=== PATIENT | male | born 1995 | race Caucasian/White ===

== ENCOUNTER 2022-09-07 13:36 | Emergency (ER) | payer OTHER ==
[~2022-09-07] VITALS: Ht 172.7 cm; Wt 65.8 kg
[2022-09-07] MEDS ORDERED: CIPRO500 MG PO (17:15)
[2022-09-07] MEDS ORDERED: DICLOFENAC SODI75 MG PO (17:15)
== END 2022-09-07 17:31 | disposition home or self-care (01) ==
LOC: ER 13:36
DX: T63.691A Toxic effect of contact with other venomous marine animals, accidental (unintentional), initial encounter (principal)

== ENCOUNTER 2024-08-05 16:41 | Emergency (ER) | payer OTHER ==
[~2024-08-05] VITALS: Ht 172.7 cm; Wt 68.0 kg
[~2024-08-05 16:41] MED LIST: CIPRO500 MG PO; DICLOFENAC SODI75 MG PO
[2024-08-05] MEDS ORDERED: KETOROLAC TROMETHAMINE 30 MG VIAL IM ONE (18:15)
[2024-08-05 18:58] LABS: URINE APPEARANCE Clear; URINE BILIRRUBIN Negative (NEGATIVE); URINE BLOOD Negative; URINE COLOR Yellow; URINE GLUCOSE Negative (NEGATIVE); URINE KETONE Negative (NEGATIVE); URINE LEUKOCYTE Negative; URINE NITRATE Negative; URINE PROTEIN Negative (NEGATIVE); URINE UROBILINOGEN 0.2 E.U./dl
[2024-08-05 19:01] LABS: URINE BACTERIA 15.9 uL (0.0-1933); URINE RBC 2.3 uL (0.0-20.8); URINE WBC 3.6 uL (0.0-23.2)
[2024-08-05 19:03] LABS: HEMATOCRIT 40.9 % (39.0-48.0); HEMOGLOBIN 14.3 g/dL (13-16.00); MEAN CELL VOLUME 92.9 fL (80.0-100.00); MEAN CORPUSCULAR HEMOGLOBIN 32.5 pg (27.00-32.0); PLATELET COUNT 305 K/uL (150-450)
[2024-08-05 19:13] LABS: URINE EPITHELIAL CELLS 0.1 uL (0.0-38.8)
[2024-08-05 19:20] LABS: CALCIUM 9.4 mg/dL (8.5-10.1); CREATININE SERUM 1.27 mg/dL (0.70-1.30); GFR 66.59; POTASSIUM 3.93 mEq/L (3.5-5.1)
== END 2024-08-05 20:33 | disposition home or self-care (01) ==
LOC: ER 16:43
PROVIDERS: General Practice
DX: I86.1 Scrotal varices (principal); N50.3 Cyst of epididymis

== ENCOUNTER 2024-09-26 15:14 | Emergency (ER) | payer OTHER ==
[~2024-09-26] VITALS: Ht 167.6 cm; Wt 63.5 kg
[2024-09-26] MEDS ORDERED: IBU600 MG PO (19:38)
== END 2024-09-26 20:20 | disposition home or self-care (01) ==
LOC: ER 15:17
DX: G89.11 Acute pain due to trauma (principal); S89.92XA Unspecified injury of left lower leg, initial encounter; W18.39XA Other fall on same level, initial encounter; Y93.01 Activity, walking, marching and hiking; Y92.89 Other specified places as the place of occurrence of the external cause

== ENCOUNTER 2024-10-04 11:13 | Outpatient (CLI) | payer OTHER ==
[~2024-10-04 11:13] MED LIST changes: +IBU600 MG PO
== END 2024-10-04 14:14 | disposition home or self-care (01) ==
LOC: MRI 11:13
PROVIDERS: ATTEND Orthopaedic Surgery
DX: M25.562 Pain in left knee (principal)
CPT/HCPCS: 73718

== ENCOUNTER 2025-05-02 16:34 | Emergency (ER) | payer OTHER ==
[~2025-05-02] VITALS: Ht 172.7 cm; Wt 68.0 kg
[2025-05-02 17:32] VITALS: BP 120/72; O2SAT 100
[2025-05-02] MEDS ORDERED: CEFTRIAXONE SODIUM 1,000 MG VIAL IM STA (18:07)
[2025-05-02] MEDS ORDERED: DEXAMETHASONE SODIUM PHOSPHATE 4 MG/ML VIAL IM STA (18:07)
[2025-05-02] MEDS ORDERED: DEXAMETHASONE SODIUM PHOSPHATE 4 MG/ML VIAL ONE (18:28)
== END 2025-05-02 23:58 | disposition home or self-care (01) ==
LOC: ER 16:34
DX: S01.81XA Laceration without foreign body of other part of head, initial encounter (principal); S09.90XA Unspecified injury of head, initial encounter; S89.92XA Unspecified injury of left lower leg, initial encounter; W45.8XXA Other foreign body or object entering through skin, initial encounter; Y93.89 Activity, other specified; Y92.828 Other wilderness area as the place of occurrence of the external cause; Y99.8 Other external cause status

== ENCOUNTER 2025-05-11 16:55 | Emergency (ER) | payer OTHER ==
[~2025-05-11] VITALS: Ht 172.7 cm; Wt 68.0 kg
== END 2025-05-11 17:32 | disposition home or self-care (01) ==
LOC: ER 16:55
DX: Z48.02 Encounter for removal of sutures (principal)